=== PATIENT | male | born 1990 | race Caucasian/White ===

== ENCOUNTER 2023-08-13 14:24 | Emergency (ER) | payer BC, SELFPAY ==
[2023-08-13 14:27] VITALS: BP 149/74; PULSE 65; RESP 18; TEMP 37.1; O2SAT 98; BMI 25.1
--- NOTE | 2023-08-13 14:31 | DI.US.S_ITS ---
PROCEDURE: US SCROTUM INDICATIONS: LEFT TESTICLE PAIN TECHNIQUE: Real-time scanning was performed of the scrotum and testicles, with image documentation. Color and pulse Doppler interrogation was performed of both testicles. COMPARISON: None. FINDINGS: Right: Testicle is normal in size at 5.6 x 3.9 x 2.6 cm, and homogenous in echotexture. Epididymis is normal in overall size and morphology. No hydrocele or varicoceles. Overlying scrotal skin is normal in thickness. Multiple small epididymal cysts are noted on the right. Left: Testicle is normal in size at 5.6 x 3.9 x 2.4 cm, and homogeneous in echotexture. Epididymis is normal in overall size and morphology. No hydrocele or varicoceles. Overlying scrotal skin is normal in thickness. Doppler: Color and pulse Doppler demonstrate normal and symmetric arterial flow in both testicles. IMPRESSION: 1. No acute abnormality. No cystic ileum mass, testicular torsion, orchitis, or epididymitis. 2. Note made of an incidental cluster of small right epididymal cysts. Dictated by: Greg Tanner M.D. on 08/13/2023 at 16:01 Approved by: Greg Tanner M.D. on 08/13/2023 at 16:03
--- NOTE | 2023-08-13 15:38 | ED.MALEGU ---
HPI - Male Genitourinary <Talisha Olvera PA-C - Last Filed: 08/13/23 16:39> General Chief complaint: Urogenital-Male Stated complaint: dr javier - pain in L testicle Time Seen by Provider: 08/13/23 14:38 Source: patient Mode of arrival: Ambulatory History of Present Illness HPI Narrative: Patient is a 33-year-old male who presents with left testicular pain since last night. The pain started abruptly when he was standing up from the couch. He took ibuprofen last night and was able to sleep through the night. When he awoke this morning the pain was worse. He went to the walk-in clinic on [facility] and they advised him to come to the emergency room for further. The pain worsens with movement. He denies any injury or trauma. No recent procedures to the area. He has never had scrotal or testicular pain before. He denies fever or chills. He denies any urinary symptoms such as dysuria, hematuria, frequency, no penile discharge or lesions. He has no new sex partners. Patient is not a diabetic and takes no medications daily. Related Data Previous Rx's Medication Instructions Recorded sulfamethoxazole 800 1 tab PO BID #20 tabs 08/13/23 mg-trimethoprim 160 mg tablet (Bactrim DS) Allergies Allergy/AdvReac Type Severity Reaction Status Date / Time No Known Drug Allergies Allergy Verified 08/13/23 14:31 Review of Systems <Talisha Olvera PA-C - Last Filed: 08/13/23 16:39> Review of Systems ROS Unobtainable: All systems reviewed & are unremarkable except as noted in HPI and below Patient History <Talisha Olvera PA-C - Last Filed: 08/13/23 16:39> Social History Smoking Status: Former smoker Smoking Status: Former smoker alcohol intake frequency: 0-2 drinks per day Substance Use Type: does not use Exam <Talisha Olvera PA-C - Last Filed: 08/13/23 16:39> Narrative Exam Narrative: GENERAL: 33 year old patient appears stated age. Well-developed patient, in no distress. NEURO: AOx3. HEAD: Atraumatic. Normocephalic. EYES: Pupils equal round and reactive. Extraocular motions intact. No scleral icterus. No injection or drainage. ENT: Nose without bleeding or purulent drainage. Airway patent. RESPIRATORY: No distress or increased work of breathing : No visible rash or erythema of the penis or scrotum. Left testicle is not swollen compared to right. Left testicle is exquisitely tender to light touch, more tender over the posterior aspect than the anterior aspect. No visible or palpable inguinal hernias. (exam chaperoned by RN) EXTREMITIES: No edema or joint tenderness. SKIN: No rash or erythema of visible areas Initial Vital Signs Initial Vital Signs: Vital Signs Temperature 98.8 F 08/13/23 14:27 Pulse Rate 65 08/13/23 14:27 Respiratory Rate 18 08/13/23 14:27 Blood Pressure 149/74 H 08/13/23 14:27 Pulse Oximetry 98 08/13/23 14:27 Oxygen Delivery Method Room Air 08/13/23 14:27 <Leanne Melara DO - Last Filed: 08/14/23 07:44> Initial Vital Signs Initial Vital Signs: Vital Signs Temperature 98.8 F 08/13/23 14:27 Pulse Rate 65 08/13/23 14:27 Respiratory Rate 18 08/13/23 14:27 Blood Pressure 149/74 H 08/13/23 14:27 Pulse Oximetry 98 08/13/23 14:27 Oxygen Delivery Method Room Air 08/13/23 14:27 Course <Talisha Olvera PA-C - Last Filed: 08/13/23 16:39> Orders Ordered: ED Orders 08/13/23 14:31 US scrotum Stat 08/13/23 15:13 Chlamydia Gonorrhea PCR -URINE Stat Vital Signs Vital signs: Vital Signs - 8 hr 08/13/23 14:27 Temperature 98.8 F Pulse Rate 65 Respiratory Rate 18 Blood Pressure 149/74 H Pulse Oximetry 98 Oxygen Delivery Method Room Air <Leanne Melara DO - Last Filed: 08/14/23 07:44> Orders Ordered: ED Orders 08/13/23 14:31 US scrotum Stat 08/13/23 15:13 Chlamydia Gonorrhea PCR -URINE Stat Vital Signs Vital signs: Vital Signs - 8 hr 08/13/23 14:27 Temperature 98.8 F Pulse Rate 65 Respiratory Rate 18 Blood Pressure 149/74 H Pulse Oximetry 98 Oxygen Delivery Method Room Air MDM - Male Genitourinary <Talisha Olvera PA-C - Last Filed: 08/13/23 16:39> Lab Data Labs: Lab Results 08/13/23 Range/Units 15:13 Ur Chlamydia DNA (PCR) Not detected N gonorrhoeae DNA (PCR) Not detected Urine Dip Bedside Urine Glucose Negative Bedside Urine Bilirubin - Negative Bedside Urine Ketone - Negative Urine Specific Wilson 1.030 Bedside Urine Occult Blood - Negative Bedside Urine pH 6.0 Bedside Urine Protein - Negative Bedside Urine Urobilinogen - Negative Bedside Urine Nitrite - Negative Bedside Urine Leukocytes - Negative Esterase Imaging Data scrotal US: Radiologist's Impression: PROCEDURE: US SCROTUM INDICATIONS: LEFT TESTICLE PAIN TECHNIQUE: Real-time scanning was performed of the scrotum and testicles, with image documentation. Color and pulse Doppler interrogation was performed of both testicles. COMPARISON: None. FINDINGS: Right: Testicle is normal in size at 5.6 x 3.9 x 2.6 cm, and homogenous in echotexture. Epididymis is normal in overall size and morphology. No hydrocele or varicoceles. Overlying scrotal skin is normal in thickness. Multiple small epididymal cysts are noted on the right. Left: Testicle is normal in size at 5.6 x 3.9 x 2.4 cm, and homogeneous in echotexture. Epididymis is normal in overall size and morphology. No hydrocele or varicoceles. Overlying scrotal skin is normal in thickness. Doppler: Color and pulse Doppler demonstrate normal and symmetric arterial flow in both testicles. IMPRESSION: 1. No acute abnormality. No cystic ileum mass, testicular torsion, orchitis, or epididymitis. 2. Note made of an incidental cluster of small right epididymal cysts. Dictated by: Greg Tanner M.D. on 08/13/2023 at 16:01 Approved by: Greg Tanner M.D. on 08/13/2023 at 16:03 [facility] Narrative Medical decision making narrative: Multiple etiologies for patient's symptoms considered including, but not limited to: Testicular torsion, epididymitis, cellulitis, Kingston's gangrene, inguinal hernia, mumps orchitis. There is no evidence of cellulitis or Kingston gangrene. There is no evidence of hernia. Patient denies any recent fever, illness or adenopathy, making mumps unlikely. There is no evidence of testicular torsion or epididymitis on ultrasound. There is an incidental finding of right epididymal cysts. Shared decision-making conversation with the patient regarding findings. Discussed that although there is no finding on his ultrasound, the location of his pain is consistent with epididymitis. I will prescribe antibiotics and patient can decide if and when he wants to take them. I think it is reasonable for a period of watchful waiting, take ibuprofen, heat or ice for comfort. If he is not getting better, I would advise taking the antibiotics. If things get significantly worse, he should return to the ER. Patient and his are in agreement. GC chlamydia pending at time of discharge. Patient's symptoms improved over duration of stay with above-stated therapies. Findings and discharge diagnosis discussed with patient/family followed by verbalization of understanding Return precautions discussed with patient/family whom verbalize understanding of diagnosis and plan <Leanne Melara, DO - Last Filed: 08/14/23 07:44> Lab Data Labs: Lab Results 08/13/23 Range/Units 15:13 Ur Chlamydia DNA (PCR) Not detected N gonorrhoeae DNA (PCR) Not detected Urine Dip Bedside Urine Glucose Negative Bedside Urine Bilirubin - Negative Bedside Urine Ketone - Negative Urine Specific Wilson 1.030 Bedside Urine Occult Blood - Negative Bedside Urine pH 6.0 Bedside Urine Protein - Negative Bedside Urine Urobilinogen - Negative Bedside Urine Nitrite - Negative Bedside Urine Leukocytes - Negative Esterase Discharge Plan Departure Patient Disposition: Home Clinical Impression: Pain in left testicle Instructions: DI for Epididymitis Activity Restrictions/Additional Instructions: * we did not identify a clear cause of your testicular pain today. Your ultrasound does not show any evidence of torsion or other surgical emergency. It also does not show any sign of epididymitis but your pain is characteristic of epididymitis. Your urine does not show any signs of infection in your gonorrhea and chlamydia test has not resulted yet. If this test comes back positive, we will give you a call. If it is negative, you do not hear from us. You can make an account online and log in to see your test results. As we discussed, it is acceptable to wait and see how things go, take ibuprofen, use ice or heat, whatever feels better. Supportive underwear maybe helpful but do not wear anything that is too tight or restrictive. I have prescribed a course of antibiotics that we will treat epididymitis. This medications called Bactrim and you take it twice a day for 10 days. Your pain is not improving or you want to go ahead and take the medicine, you will have the prescription. If you develop any significant signs of illness such as fever,chills, painful urination, blood in your urine, acutely worsening pain or swelling, you should return to the emergency department. *What to do: *Please continue to take your regular medications as directed. [x] New medication prescriptions sent to your pharmacy: [facility] in [place] [ ] New medication written as a paper prescription [ ] No new medications given *Please follow up with your primary care provider in 2-3 days, call for an appointment. Let them know you were seen in the Emergency Department and that we ask that you be seen in follow up. We will electronically transmit a record of today's note if your PCP is in our system *If you do not have a primary care provider please contact the [facility] Resource line at [phone]. They will ask some questions about your medical history and help get you set up with a doctor in the community. *Return to Emergency Department if you should have any new, worsening or concerning symptoms, such as [fever greater than 101 F, shaking chills, worsening pain, persistent vomiting or other concerning symptoms]. Prescriptions: New sulfamethoxazole-trimethoprim [Bactrim DS] 800-160 mg tablet 1 tab PO BID Qty: 20 0RF Stand Alone Forms: Patient Portal/API ED Sign-out <Leanne Melara, - Last Filed: 08/14/23 07:44> Cosign ED Attending Bob Attestation: I was immediately available in the department for consultation.
[2023-08-13 16:34] VITALS: BP 125/77; PULSE 63; RESP 18; O2SAT 99
[2023-08-13 16:43] LABS: Urine N gonorrhoeae NOT DETECTED
[2023-08-13 16:48] LABS: Urine Chlamydia NOT DETECTED
== END 2023-08-13 16:35 | disposition home or self-care (01) ==
PROVIDERS: Emergency Provider Physician Assistant
DX: N50.812 Left testicular pain (principal)
CPT/HCPCS: 76870; 81003; 87491; 87591; 93975; 99282; 99283